=== PATIENT | male | born 2000 | race Two or more races ===

== ENCOUNTER → 2021-04-29 | Emergency (ER) | payer OTHER ==
[~2021-04-29] VITALS: Ht 177.8 cm; Wt 67.1 kg
[~2021-04-29] MED LIST: GELATIN SPONGE,ABSORBABLE 1 SPONGE SPONGE TP ONE; LIDOCAINE HCL/PF 1% 30 ML SDV ONE; SILVER NITRATE APPLICATOR 1 EA BOX ONE; SILVER SULFADIAZINE CREAM 25 GM TUBE ONE
[2021-04-29 15:40] VITALS: BP 120/65
--- NOTE | 2021-04-29 15:40 | NUR ---
BIB SELF C/O ACCIDENTALLY CUTTING RIGHT THUMB WHILE SLICING A CUCUMBER AT WORK 30 MINS AGO. A&OX4. SKIN IS WARM AND DRY. SMALL LACERATION ON TIP OF RIGHT THUMB. ACTIVE BLEEDING. THUMB IS WRAPPED IN GAUZE
--- NOTE | 2021-04-29 15:40 | NUR ---
WOUND IS BEING IRRIGATED AT BEDSIDE
--- NOTE | 2021-04-29 16:19 | NUR ---
CONTINUING TO MONITOR PT
--- NOTE | 2021-04-29 16:38 | NUR ---
CAUTERIZING WOUND AT BEDSIDE
--- NOTE | 2021-04-29 17:07 | NUR ---
Patient discharged to home in stable condition. Written and verbal after care instructions given. Patient verbalizes understanding of instruction.
== END | disposition home or self-care (01) ==
LOC: ER 15:36
DX: S61.011A Laceration without foreign body of right thumb without damage to nail, initial encounter (principal); W26.8XXA Contact with other sharp object(s), not elsewhere classified, initial encounter; Y93.89 Activity, other specified; Y92.89 Other specified places as the place of occurrence of the external cause; Y99.8 Other external cause status
CPT/HCPCS: 64450; 99284; A6403; J3490

== ENCOUNTER 2021-05-01 14:26 | Emergency (ER) | payer OTHER ==
[~2021-05-01] VITALS: Ht 177.8 cm; Wt 67.1 kg
[2021-05-01 14:32] VITALS: BP 125/81
== END 2021-05-01 14:56 | disposition home or self-care (01) ==
LOC: ER 14:29
DX: S61.001D Unspecified open wound of right thumb without damage to nail, subsequent encounter (principal); X58.XXXD Exposure to other specified factors, subsequent encounter